=== PATIENT | male | born 1960 | race Caucasian/White ===

== ENCOUNTER 2018-09-16 08:45 | Outpatient (RCR) | payer BC, SELFPAY ==
[2018-09-09 08:48] VITALS: BP 128/97; PULSE 65; RESP 18; TEMP 36.3; BMI 32.5
--- NOTE | 2018-09-09 11:08 | PCM.WC.HP ---
(1) Diabetes type 2, uncontrolled Status: Acute Current Visit: Yes Code(s): E11.65 - Type 2 diabetes mellitus with hyperglycemia (2) Decubitus ulcer of toe, stage 3 Status: Acute Current Visit: Yes Code(s): L89.893 - Pressure ulcer of other site, stage 3 (3) Non-healing ulcer of right foot with fat layer exposed Status: Acute Current Visit: Yes Code(s): L97.512 - Non-pressure chronic ulcer of other part of right foot with fat layer exposed History of Present Illness Date of Service: 09/09/18 Chief Complaint: Follow-up on right great toe ulcer History of Wound: 58-year-old white male developed a callus on his right great toe approximately in May. Patient proceeded to pick off the callus and developed a ulcer that is gotten bigger and bigger. Has been seen by podiatry that wanted to do a skin graft but would make him nonweightbearing. Patient chose to come to wound center for a second opinion. Past Medical History Past Medical History: Diabetic type II. Decubitus ulcer stage III right great toe. Hypertension. CABG Allergies/Adverse Reactions: Allergies Penicillins [PCN] Allergy (Verified 09/09/18 09:15) Rash codeine Adverse Reaction (Verified 09/09/18 09:15) Nausea Home Medications: Ambulatory Orders Medication Instructions Recorded Amiodarone HCl 200 mg PO 09/09/18 Aspirin [Aspir 81] 81 mg PO 09/09/18 Atorvastatin Calcium 40 mg PO 09/09/18 Dulaglutide [Trulicity] 0.75 mg SQ 09/09/18 Gabapentin [Neurontin] 100 mg PO DAILY 09/09/18 Glipizide 5 mg PO BID 09/09/18 Losartan/Hydrochlorothiazide 1 each PO 09/09/18 [Losartan-Hctz 100-12.5 mg Tab] Metoprolol [facility]/Hydrochlorothiaz 1 each PO 09/09/18 [Metoprolol ER-Hctz 100-12.5 mg] Sodium Bicarbonate 1 gm MC 09/09/18 Ticagrelor [Brilinta] 90 mg PO BID 09/09/18 Smoking Status: Never smoker Review of Systems Constitutional: Denies: Chills, Fever Eyes: Denies: Blurred vision, Drainage, Pain HEENT: Denies: Difficulty Hearing, Difficulty Swallowing, Sore Throat, Visual Changes Cardiovascular: Denies: Chest Pain, Palpitations, Syncope Respiratory: Denies: Cough, Shortness of Breath Gastrointestinal: Denies: Abdominal Pain, Nausea, Vomiting Genitourinary: Denies: Dysuria, Frequency Musculoskeletal: Denies: Joint Pain, Muscle pain Skin: Reports: Wounds - Right great toe. Denies: Jaundice, Rash Neurological: Denies: Balance problems, Change in Speech, Difficulty swallowing, Focal weakness Psychiatric: Denies: Anxiety, Depression Endocrine: Denies: Change in Body Habitus Hematologic/ Lymphatic: Denies: Adenopathy - Physical Exam Vital Signs Temp Pulse Resp BP 97.3 F L 65 18 128/97 H 09/09/18 08:48 09/09/18 08:48 09/09/18 08:48 09/09/18 08:48 General: Oriented x3, Cooperative, Well developed HEENT: Atraumatic, PERRLA Oral: Moist Mucosa Neck: Supple, No JVD Lungs: Clear to auscultation, Normal air movement Cardiovascular: Regular rate, Regular Rhythm Abdomen: Bowel Sounds Present, Soft, Non Tender, No Hepato-splenomegaly Extremities: No clubbing, No edema Skin: Ulcer/ Wound - Right great toe decubitus ulcer stage III Wound Measurements and Assessment WC - Nurse 1 - General Ulcer Measurement Start: 09/09/18 08:27 Freq: Status: Active Protocol: Activity Type Activity Date Activity User E-Sign Co-Sign Detail Recorded Client Recorded Date Recorded By Document 09/09/18 08:48 DL [id number] 09/09/18 09:11 DL 09/09/18 08:48 Wound Center Nurse 1 [Ulcer Assessment] #1 R Grt Toe -Current Size (cm) - Length 1.4 -Current Size (cm) - Width 1 -Current Size (cm) - Depth 0.4 -Total Square Cm 1.4 -Photo Taken Yes -Exudate Amt Medium -Exudate Type Serosanguineous -Wound Margin Thickened -Granulation Amt Large (67-100%) -Granulation Quality Red -Necrosis Amt Small (1-33%) -Necrotic Tissue Type Adherent Slough -Structure Exposed N/A -Texture (Bere-wound Skin Appearance) Callus Localized Edema Scarring -Moisture (Bere-wound Skin Appearance Dry/Scaly ) -Color (Bere-wound Skin Appearance) Hemosiderin Staining -Tenderness on Palpation (Bere-wound No Skin Appearance) -Ulcer Cleansing Rinsed/ Irrigated with Saline -Foul Odor after Cleansing No -Anesthetic Used 5% Lidocaine Gel WC - Nurse 2 - General Ulcer CM Notes Start: 09/09/18 08:27 Freq: Status: Active Protocol: Activity Type Activity Date Activity User E-Sign Co-Sign Detail Recorded Client Recorded Date Recorded By Document 09/09/18 09:30 MW [id number] 09/09/18 09:43 MW 09/09/18 09:30 Wound Center Nurse 2 [Procedure/Treatment] -Time 09:31 -Correct Patient Yes -Correct Side, Site, Position Yes -Correct Procedure Yes -Procedure Performed Yes -Type of Procedure Debridement -Clinical Debridement Subcutaneous -Post Debridement Size (cm) - Length 1.7 -Post Debridement Size (cm) - Width 1.0 -Post Debridement Size (cm) - Depth 0.4 -Total Square Cm 1.70 -Wound/Ulcer Outcome Not Healed -Ulcer Cleansing Rinsed/ Irrigated with Saline -Foul Odor after Cleansing No -Bioengineered Tissue No -Bleeding Controlled with Pressure -Other undermining 11- 1, 0.3cm -Offloading No -Treatment Response Procedure Tolerated Well [See Physician Procedure note for Specifics] Pain Scale: 0-10 Numeric [Pain] -Is Patient Pain Free? Yes Musculoskeletal: No Tenderness to Palpation of Joints or Extremities Lymphatic: No Cervical, Supraclavicular, or Inguinal Adenopathy Neurological: Cranial nerves II-XII grossly intact, Neuro grossly intact Psych/Mental Status: Normal Affect, Appropriate Debridement Note Post-Debridement Measurements/Treatment - Nurse 2 - General Ulcer CM Notes Start: 09/09/18 08:27 Freq: Status: Active Protocol: Activity Type Activity Date Activity User E-Sign Co-Sign Detail Recorded Client Recorded Date Recorded By Document 09/09/18 09:30 MW [id number] 09/09/18 09:43 MW 09/09/18 09:30 Wound Center Nurse 2 #1 R Grt Toe -Time 09:31 -Correct Patient Yes -Correct Side, Site, Position Yes -Correct Procedure Yes -Procedure Performed Yes -Type of Procedure Debridement -Clinical Debridement Subcutaneous -Post Debridement Size (cm) - Length 1.7 -Post Debridement Size (cm) - Width 1.0 -Post Debridement Size (cm) - Depth 0.4 -Total Square Cm 1.70 -Wound/Ulcer Outcome Not Healed -Ulcer Cleansing Rinsed/ Irrigated with Saline -Foul Odor after Cleansing No -Bioengineered Tissue No -Bleeding Controlled with Pressure -Other undermining 11- 1, 0.3cm -Offloading No -Treatment Response Procedure Tolerated Well Pain Scale: 0-10 Numeric Is Patient Pain Free? Yes Wound debrided: Great toe Laterality: Right Wound Grade/Stage: Stage 3 Type of Debridement: Excisional debridement Anesthesia Used: 5% Lidocaine Gel Depth: Down to and including healthy tissue, in the subcutaneous layer Percentage of wound debrided: 100 Instrument Used: 5mm curette, #15 blade Tissue Removed: Callus fibrin Amount of bleeding with debridement: Mild Bleeding Controlled with: Compression and gauze Patient tolerated procedure well Assessment/Plan CBC CMP and a hemoglobin A1c CBC CMP hemoglobin A1c and pre-albumin Active Problems Diabetes type 2, uncontrolled (Acute) Decubitus ulcer of toe, stage 3 (Acute) Non-healing 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 Stage III decubitus ulcer right great toe. Nonhealing ulcer greater than 30 days Plan: Wash foot with Dial soap. Apply Promogran to wound base cover with Adaptic gauze and tape. We will apply for epi-fix. Follow-up in 1 week. We will obtain labs
[2018-09-16 08:57] VITALS: BP 119/78; PULSE 64; RESP 16; TEMP 36; BMI 32.5
--- NOTE | 2018-09-16 09:46 | PCM.WC.PN ---
(1) Diabetes type 2, uncontrolled Status: Acute Current Visit: Yes Code(s): E11.65 - Type 2 diabetes mellitus with hyperglycemia (2) Decubitus ulcer of toe, stage 3 Status: Acute Current Visit: Yes Qualifiers: Laterality: right Qualified Code(s): L89.893 - Pressure ulcer of other site, stage 3 Code(s): L89.893 - Pressure ulcer of other site, stage 3 (3) Non-healing ulcer of right foot with fat layer exposed Status: Acute Current Visit: Yes Code(s): L97.512 - Non-pressure chronic ulcer of other part of right foot with fat layer exposed Type of Wound Chief Complaint: Follow-up on right great toe ulcer History of Wound: 58-year-old white male developed a callus on his right great toe approximately in May. Patient proceeded to pick off the callus and developed a ulcer that is gotten bigger and bigger. Has been seen by podiatry that wanted to do a skin graft but would make him nonweightbearing. Patient chose to come to wound center for a second opinion. Progress of Wound: Still pending the skin substitutes. The ulcer is slightly smaller than it was last week. Cultures came back positive for MRSA and strep. She has been started on Zyvox. We will continue to use Promogran until skin substitute can be started. 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 - Physical Exam Vital Signs Temp Pulse Resp BP 96.8 F L 64 16 119/78 09/16/18 08:57 09/16/18 08:57 09/16/18 08:57 09/16/18 08:57 General: Oriented x3, Cooperative, Well developed HEENT: Atraumatic, PERRLA Oral: Moist Mucosa Neck: Supple, No JVD Lungs: Clear to auscultation, Normal air movement Cardiovascular: Regular rate, Regular Rhythm Abdomen: Bowel Sounds Present, Soft, Non Tender, No Hepato-splenomegaly Extremities: No clubbing, No edema, - - Right great toe ulcer Wound Measurements and Assessment WC - Nurse 1 - General Ulcer Measurement Start: 09/09/18 08:27 Freq: Status: Active Protocol: Activity Type Activity Date Activity User E-Sign Co-Sign Detail Recorded Client Recorded Date Recorded By Document 09/16/18 08:57 DV [id number] 09/16/18 09:00 DV 09/16/18 08:57 Wound Center Nurse 1 [Ulcer Assessment] #1 R Grt Toe -Combined with other wound No -Current Size (cm) - Length 1.4 -Current Size (cm) - Width 1.1 -Current Size (cm) - Depth 0.5 -Total Square Cm 1.54 -Photo Taken No -Epithelialization None Present -Tunneling No -Undermining/Tunneling No -Circular Undermining No -Classification - Thickness Full Thickness without Exposed Support Structure -Exudate Amt Medium -Exudate Type Serosanguineous -Wound Margin Distinct, Outline Attached -Granulation Amt None Present (0 %) -Granulation Quality N/A -Slough/Fibrin Yes -Necrosis Amt Small (1-33%) -Necrotic Tissue Type Adherent Slough -Structure Exposed Fat Layer Exposed None/Limited to Skin Breakdown -Texture (Bere-wound Skin Appearance) Assessed Localized Edema Scarring -Moisture (Bere-wound Skin Appearance Assessed ) Weeping -Color (Bere-wound Skin Appearance) No Abnormality Assessed -Temperature (Bere-wound Skin No Abnormality Appearance) (Pt Warm) -Tenderness on Palpation (Bere-wound No Skin Appearance) -Ulcer Cleansing Rinsed/ Irrigated with Saline -Foul Odor after Cleansing No -Anesthetic Used 4% Lidocaine Solution [Edema Assessment] -Lower Limb Edema Present No WC - Nurse 2 - General Ulcer CM Notes Start: 09/09/18 08:27 Freq: Status: Active Protocol: Activity Type Activity Date Activity User E-Sign Co-Sign Detail Recorded Client Recorded Date Recorded By Document 09/16/18 09:33 MW [id number] 09/16/18 09:36 MW 09/16/18 09:33 Wound Center Nurse 2 [Procedure/Treatment] #1 R Grt Toe -Time 09:35 -Correct Patient Yes -Correct Side, Site, Position Yes -Correct Procedure Yes -Procedure Performed Yes -Type of Procedure Debridement -Clinical Debridement Subcutaneous -Post Debridement Size (cm) - Length 1.6 -Post Debridement Size (cm) - Width 1.0 -Post Debridement Size (cm) - Depth 0.4 -Total Square Cm 1.60 -Wound/Ulcer Outcome Not Healed -Ulcer Cleansing Rinsed/ Irrigated with Saline -Foul Odor after Cleansing No -Bioengineered Tissue No -Bleeding Controlled with Pressure -Offloading No -Treatment Response Procedure Tolerated Well [See Physician Procedure note for Specifics] Pain Scale: 0-10 Numeric [Pain] -Is Patient Pain Free? Yes Musculoskeletal: No Tenderness to Palpation of Joints or Extremities Lymphatic: No Cervical, Supraclavicular, or Inguinal Adenopathy Neurological: Cranial nerves II-XII grossly intact, Neuro grossly intact Psych/Mental Status: Normal Affect, Appropriate Debridement Note Post-Debridement Measurements/Treatment WC - Nurse 2 - General Ulcer CM Notes Start: 09/09/18 08:27 Freq: Status: Active Protocol: Activity Type Activity Date Activity User E-Sign Co-Sign Detail Recorded Client Recorded Date Recorded By Document 09/09/18 09:30 MW [id number] 09/09/18 09:43 MW Document 09/16/18 09:33 MW [id number] 09/16/18 09:36 MW 09/09/18 09/16/18 09:30 09:33 Wound Center Nurse 2 #1 R Grt Toe -Time 09:31 09:35 -Correct Patient Yes Yes -Correct Side, Site, Position Yes Yes -Correct Procedure Yes Yes -Procedure Performed Yes Yes -Type of Procedure Debridement Debridement -Clinical Debridement Subcutaneous Subcutaneous -Post Debridement Size (cm) - Length 1.7 1.6 -Post Debridement Size (cm) - Width 1.0 1.0 -Post Debridement Size (cm) - Depth 0.4 0.4 -Total Square Cm 1.70 1.60 -Wound/Ulcer Outcome Not Healed Not Healed -Ulcer Cleansing Rinsed/ Rinsed/ Irrigated with Irrigated with Saline Saline -Foul Odor after Cleansing No No -Bioengineered Tissue No No -Bleeding Controlled with Pressure Pressure -Other undermining 11- 1, 0.3cm -Offloading No No -Treatment Response Procedure Procedure Tolerated Well Tolerated Well Pain Scale: 0-10 Numeric Is Patient Pain Free? Yes Yes Wound debrided: Right great toe Laterality: Right Wound Grade/Stage: Stage III Type of Debridement: Excisional debridement Anesthesia Used: 5% Lidocaine Gel Depth: Down to and including healthy tissue, in the subcutaneous layer, - - With undermining 11-1 Percentage of wound debrided: 100 Instrument Used: 5mm curette Tissue Removed: Fibrin callus Severity: Limited To Skin Breakdown Amount of bleeding with debridement: Moderate Bleeding Controlled with: Compression and gauze Patient tolerated procedure well Assessment/Plan Active Problems Diabetes type 2, uncontrolled (Acute) Decubitus ulcer of toe, stage 3 (Acute) Non-healing 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 Stage III decubitus ulcer right great toe. Nonhealing ulcer greater than 30 days Plan: Wash foot with Dial soap. Apply Promogran to wound base cover with Adaptic gauze and tape. We will apply for epi-fix. Follow-up in 1 week
== END 2018-09-20 23:59 ==
LOC: WC 08:45
PROVIDERS: Family Provider Family Medicine; PCP Family Medicine; Visit Provider Nurse Practitioner
DX: E11.621 Type 2 diabetes mellitus with foot ulcer (principal); L89.893 Pressure ulcer of other site, stage 3; E11.65 Type 2 diabetes mellitus with hyperglycemia; L84 Corns and callosities; Z86.14 Personal history of Methicillin resistant Staphylococcus aureus infection
CPT/HCPCS: 11042; 87070; 87075; 87077; 87186; 87205; 99203; G0463

== ENCOUNTER 2018-10-21 11:00 | Outpatient (RCR) | payer BC, SELFPAY ==
[2018-09-21 01:54] VITALS: BP 119/78; PULSE 64; RESP 16; TEMP 36
[2018-09-23 09:52] VITALS: BP 129/80; PULSE 72; RESP 18; TEMP 36.6; BMI 32.5
--- NOTE | 2018-09-23 11:00 | PN.PCM_ITS ---
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 Patient proceeded to pick off the callus and developed a ulcer that is gotten bigger and bigger. Has been seen by podiatry that wanted to do a skin graft but would make him nonweightbearing. Patient chose to come to wound center for a second opinion. Progress of Wound: Still pending the skin substitutes. The ulcer is slightly smaller than it was last week. Cultures came back positive for MRSA and strep. He is finishing Zyvox. We will continue to use Promogran until skin substitute can be started. 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 Skin buds are noted in the base still has some undermining 12-1 total improvement in the healing. - Physical Exam Vital Signs Temp Pulse Resp BP 97.8 F 72 18 129/80 H 09/23/18 09:52 09/23/18 09:52 09/23/18 09:52 09/23/18 09:52 General: Oriented x3, Cooperative, Well developed HEENT: Atraumatic, PERRLA Oral: Moist Mucosa Neck: Supple, No JVD Lungs: Clear to auscultation, Normal air movement Cardiovascular: Regular rate, Regular Rhythm Abdomen: Bowel Sounds Present, Soft, Non Tender, No Hepato-splenomegaly Extremities: No clubbing, No edema Skin: Ulcer/ Wound - Right great toe Wound Measurements and Assessment WC - Nurse 1 - General Ulcer Measurement Start: 09/23/18 09:51 Freq: Status: Active Protocol: Activity Type Activity Date Activity User E-Sign Co-Sign Detail Recorded Client Recorded Date Recorded By Document 09/23/18 09:52 DL [id number] 09/23/18 09:57 DL 09/23/18 09:52 Wound Center Nurse 1 [Ulcer Assessment] #1 R Grt Toe -Current Size (cm) - Length 1.4 -Current Size (cm) - Width 1 -Current Size (cm) - Depth 0.3 -Total Square Cm 1.4 -Photo Taken No -Undermining/Tunneling Starts (O' 8 clock) -Undermining/Tunneling Ends (O'clock) 1 -Maximum Distance (cm) 0.3 -Exudate Amt Small -Exudate Type Serosanguineous -Wound Margin Thickened -Granulation Amt Medium (34-66%) -Granulation Quality [place] -Necrosis Amt Medium (34-66%) -Necrotic Tissue Type Adherent Slough -Structure Exposed N/A -Texture (Bere-wound Skin Appearance) Callus -Moisture (Bere-wound Skin Appearance Dry/Scaly ) -Color (Bere-wound Skin Appearance) No Abnormality -Temperature (Bere-wound Skin No Abnormality Appearance) (Pt Warm) -Tenderness on Palpation (Bere-wound No Skin Appearance) -Ulcer Cleansing Wound Cleanser -Foul Odor after Cleansing No -Anesthetic Used 4% Lidocaine Solution [Edema Assessment] -Right Calf (cm) 39 -Right Ankle (cm) 23 WC - Nurse 2 - General Ulcer CM Notes Start: 09/23/18 09:51 Freq: Status: Active Protocol: Activity Type Activity Date Activity User E-Sign Co-Sign Detail Recorded Client Recorded Date Recorded By Document 09/23/18 10:05 MW [id number] 09/23/18 10:09 MW 09/23/18 10:05 Wound Center Nurse 2 [Procedure/Treatment] #1 R Grt Toe -Time 10:06 -Correct Patient Yes -Correct Side, Site, Position Yes -Correct Procedure Yes -Procedure Performed Yes -Type of Procedure Debridement -Clinical Debridement Subcutaneous -Post Debridement Size (cm) - Length 1.4 -Post Debridement Size (cm) - Width 1.2 -Post Debridement Size (cm) - Depth 0.3 -Total Square Cm 1.68 -Wound/Ulcer Outcome Not Healed -Ulcer Cleansing Rinsed/ Irrigated with Saline -Foul Odor after Cleansing No -Bioengineered Tissue No -Bleeding Controlled with Pressure -Other undermining 12- 1 , 0.3cm -Offloading No -Treatment Response Procedure Tolerated Well [See Physician Procedure note for Specifics] Pain Scale: 0-10 Numeric [Pain] -Is Patient Pain Free? Yes Musculoskeletal: No Tenderness to Palpation of Joints or Extremities Lymphatic: No Cervical, Supraclavicular, or Inguinal Adenopathy Neurological: Cranial nerves II-XII grossly intact, Neuro grossly intact Psych/Mental Status: Normal Affect, Appropriate Debridement Note Post-Debridement Measurements/Treatment WC - Nurse 2 - General Ulcer CM Notes Start: 09/23/18 09:51 Freq: Status: Active Protocol: Activity Type Activity Date Activity User E-Sign Co-Sign Detail Recorded Client Recorded Date Recorded By Document 09/23/18 10:05 MW [id number] 09/23/18 10:09 MW 09/23/18 10:05 Wound Center Nurse 2 #1 R Grt Toe -Time 10:06 -Correct Patient Yes -Correct Side, Site, Position Yes -Correct Procedure Yes -Procedure Performed Yes -Type of Procedure Debridement -Clinical Debridement Subcutaneous -Post Debridement Size (cm) - Length 1.4 -Post Debridement Size (cm) - Width 1.2 -Post Debridement Size (cm) - Depth 0.3 -Total Square Cm 1.68 -Wound/Ulcer Outcome Not Healed -Ulcer Cleansing Rinsed/ Irrigated with Saline -Foul Odor after Cleansing No -Bioengineered Tissue No -Bleeding Controlled with Pressure -Other undermining 12- 1 , 0.3cm -Offloading No -Treatment Response Procedure Tolerated Well Pain Scale: 0-10 Numeric Is Patient Pain Free? Yes Wound debrided: Right great toe Wound Grade/Stage: Stage III Type of Debridement: Excisional debridement Anesthesia Used: 5% Lidocaine Gel Depth: Down to and including healthy tissue, in the subcutaneous layer Percentage of wound debrided: 100 Instrument Used: 7mm curette Tissue Removed: Devitalized tissue and fibrin Amount of bleeding with debridement: Mild Bleeding Controlled with: Compression and gauze Patient tolerated procedure well Assessment/Plan Active Problems Diabetes type 2, uncontrolled (Acute) Decubitus ulcer of toe, stage 3 (Acute) Non-healing 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 Stage III decubitus ulcer right great toe. Nonhealing ulcer greater than 30 days Plan: Wash foot with Dial soap. Apply Promogran to wound base cover with Adaptic gauze and tape. We will apply for epi-fix. Follow-up in 1 week
[2018-10-07 11:37] VITALS: BP 157/90; PULSE 62; RESP 18; TEMP 36.1; BMI 32.5
--- NOTE | 2018-10-07 11:56 | PCM.WC.PN ---
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 Patient proceeded to pick off the callus and developed a ulcer that is gotten bigger and bigger. Has been seen by podiatry that wanted to do a skin graft but would make him nonweightbearing. Patient chose to come to wound center for a second opinion. Progress of Wound: Patient has not been here for 2 weeks skin substitute has been approved. The ulcer is slightly there are than it was 2 weeks ago. Cultures came back positive for MRSA and strep. He is finished Zyvox. The wound appears clean and still has undermining from 6-12. He started his new job that he is now walking on his foot to a more sedentary job at his desk. - Physical Exam Vital Signs Temp Pulse Resp BP 96.9 F L 62 18 157/90 H 10/07/18 11:37 10/07/18 11:37 10/07/18 11:37 10/07/18 11:37 General: Oriented x3, Cooperative, Well developed HEENT: Atraumatic, PERRLA Oral: Moist Mucosa Neck: Supple, No JVD Lungs: Clear to auscultation, Normal air movement Cardiovascular: Regular rate, Regular Rhythm Abdomen: Bowel Sounds Present, Soft, Non Tender, No Hepato-splenomegaly Extremities: No clubbing, No edema, - - Right great toe ulcer stage III Wound Measurements and Assessment WC - Nurse 1 - General Ulcer Measurement Start: 09/23/18 09:51 Freq: Status: Active Protocol: Activity Type Activity Date Activity User E-Sign Co-Sign Detail Recorded Client Recorded Date Recorded By Document 10/07/18 11:37 [id number] 10/07/18 11:39 10/07/18 11:37 Wound Center Nurse 1 [Ulcer Assessment] #1 R Grt Toe -Combined with other wound No -Current Size (cm) - Length 1.5 -Current Size (cm) - Width 1.2 -Current Size (cm) - Depth 0.6 -Total Square Cm 1.80 -Photo Taken No -Epithelialization None Present -Tunneling No -Undermining/Tunneling Yes -Undermining/Tunneling Starts (O' 6 clock) -Undermining/Tunneling Ends (O'clock) 2 -Maximum Distance (cm) 0.5 -Circular Undermining No -Exudate Amt Medium -Exudate Type Serosanguineous -Wound Margin Distinct, Outline Attached -Granulation Amt Large (67-100%) -Granulation Quality Red -Slough/Fibrin Yes -Necrosis Amt Small (1-33%) -Necrotic Tissue Type Adherent Slough -Structure Exposed None/Limited to Skin Breakdown -Texture (Bere-wound Skin Appearance) Assessed Callus -Moisture (Bere-wound Skin Appearance No Abnormality ) Assessed -Color (Bere-wound Skin Appearance) No Abnormality Assessed -Temperature (Bere-wound Skin No Abnormality Appearance) (Pt Warm) -Tenderness on Palpation (Bere-wound No Skin Appearance) -Ulcer Cleansing Rinsed/ Irrigated with Saline -Foul Odor after Cleansing No -Anesthetic Used 5% Lidocaine Gel [Edema Assessment] -Lower Limb Edema Present No -Left Calf (cm) 42 -Left Ankle (cm) 24.4 Musculoskeletal: No Tenderness to Palpation of Joints or Extremities Lymphatic: No Cervical, Supraclavicular, or Inguinal Adenopathy Neurological: Cranial nerves II-XII grossly intact, Neuro grossly intact Psych/Mental Status: Normal Affect, Appropriate Debridement Note Post-Debridement Measurements/Treatment WC - Nurse 2 - General Ulcer CM Notes Start: 09/23/18 09:51 Freq: Status: Active Protocol: Activity Type Activity Date Activity User E-Sign Co-Sign Detail Recorded Client Recorded Date Recorded By Document 09/23/18 10:05 MW [id number] 09/23/18 10:09 MW 09/23/18 10:05 Wound Center Nurse 2 #1 R Grt Toe -Time 10:06 -Correct Patient Yes -Correct Side, Site, Position Yes -Correct Procedure Yes -Procedure Performed Yes -Type of Procedure Debridement -Clinical Debridement Subcutaneous -Post Debridement Size (cm) - Length 1.4 -Post Debridement Size (cm) - Width 1.2 -Post Debridement Size (cm) - Depth 0.3 -Total Square Cm 1.68 -Wound/Ulcer Outcome Not Healed -Ulcer Cleansing Rinsed/ Irrigated with Saline -Foul Odor after Cleansing No -Bioengineered Tissue No -Bleeding Controlled with Pressure -Other undermining 12- 1 , 0.3cm -Offloading No -Treatment Response Procedure Tolerated Well Pain Scale: 0-10 Numeric Is Patient Pain Free? Yes Wound Grade/Stage: Right great toe ulcer Type of Debridement: Excisional debridement Anesthesia Used: 5% Lidocaine Gel Percentage of wound debrided: 100 Instrument Used: 5mm curette, - Tissue Removed: Fibrin Callus Severity: Limited To Skin Breakdown Amount of bleeding with debridement: Mild Bleeding Controlled with: Compression and gauze Patient tolerated procedure well Assessment/Plan Active Problems Diabetes type 2, uncontrolled (Acute) Decubitus ulcer of toe, stage 3 (Acute) Non-healing 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 Stage III decubitus ulcer right great toe. Nonhealing ulcer greater than 30 days Plan: Epi fix #1 applied Steri-Strips dressing applied. Leave dressing alone and keep dry. Follow-up in 1 week
[2018-10-14 11:21] VITALS: BP 141/56; PULSE 66; RESP 16; TEMP 36.3; BMI 32.5
--- NOTE | 2018-10-14 12:51 | PCM.WC.PN ---
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 Patient proceeded to pick off the callus and developed a ulcer that is gotten bigger and bigger. Has been seen by podiatry that wanted to do a skin graft but would make him nonweightbearing. Patient chose to come to wound center for a second opinion. Progress of Wound: Patient has not been here for 2 weeks skin substitute has been approved. The ulcer is slightly there are than it was 2 weeks ago. Cultures came back positive for MRSA and strep. He is finished Zyvox. The wound appears clean and still has undermining from 6-12. He started his new job that he is now walking on his foot to a more sedentary job at his desk. Patient states that after the second day the wound became saturated and came off. Wound is slightly better in depth but about the same size still has undermining 6-12. Epi-fix #2 was applied today - Physical Exam Vital Signs Temp Pulse Resp BP 97.3 F L 66 16 141/56 H 10/14/18 11:21 10/14/18 11:21 10/14/18 11:21 10/14/18 11:21 General: Oriented x3, Cooperative, Well developed HEENT: Atraumatic, PERRLA Oral: Moist Mucosa Neck: Supple, No JVD Lungs: Clear to auscultation, Normal air movement Cardiovascular: Regular rate, Regular Rhythm Abdomen: Bowel Sounds Present, Soft, Non Tender, No Hepato-splenomegaly Extremities: No clubbing, No edema, - - Right great toe ulcer Wound Measurements and Assessment WC - Nurse 1 - General Ulcer Measurement Start: 09/23/18 09:51 Freq: Status: Active Protocol: Activity Type Activity Date Activity User E-Sign Co-Sign Detail Recorded Client Recorded Date Recorded By Document 10/14/18 11:21 [facility] [id number] 10/14/18 11:24 [facility] 10/14/18 11:21 Wound Center Nurse 1 [Ulcer Assessment] #1 R Grt Toe -Combined with other wound No -Current Size (cm) - Length 0.9 -Current Size (cm) - Width 1.0 -Current Size (cm) - Depth 0.3 -Total Square Cm 0.90 -Photo Taken No -Epithelialization None Present -Tunneling No -Undermining/Tunneling Yes -Undermining/Tunneling Starts (O' 6 clock) -Undermining/Tunneling Ends (O'clock) 1 -Maximum Distance (cm) 0.2 -Circular Undermining No -Exudate Amt Medium -Exudate Type Serosanguineous -Wound Margin Distinct, Outline Attached -Granulation Amt Large (67-100%) -Granulation Quality Red -Slough/Fibrin Yes -Necrosis Amt None Present (0 %) -Necrotic Tissue Type Adherent Slough -Structure Exposed None/Limited to Skin Breakdown -Texture (Bere-wound Skin Appearance) Callus -Moisture (Bere-wound Skin Appearance No Abnormality ) Assessed -Color (Bere-wound Skin Appearance) No Abnormality Assessed -Temperature (Bere-wound Skin No Abnormality Appearance) (Pt Warm) -Tenderness on Palpation (Bere-wound No Skin Appearance) -Ulcer Cleansing Rinsed/ Irrigated with Saline -Foul Odor after Cleansing No -Anesthetic Used 5% Lidocaine Gel [Edema Assessment] -Lower Limb Edema Present No -Right Calf (cm) 42.1 -Right Ankle (cm) 24.5 WC - Nurse 2 - General Ulcer CM Notes Start: 09/23/18 09:51 Freq: Status: Active Protocol: Activity Type Activity Date Activity User E-Sign Co-Sign Detail Recorded Client Recorded Date Recorded By Document 10/14/18 11:36 MW [id number] 10/14/18 11:46 MW 10/14/18 11:36 Wound Center Nurse 2 [Procedure/Treatment] #1 R Grt Toe -Time 11:38 -Correct Patient Yes -Correct Side, Site, Position Yes -Correct Procedure Yes -Procedure Performed Yes -Type of Procedure Debridement -Clinical Debridement Subcutaneous -Post Debridement Size (cm) - Length 1.8 -Post Debridement Size (cm) - Width 1.0 -Post Debridement Size (cm) - Depth 0.3 -Total Square Cm 1.80 -Wound/Ulcer Outcome Not Healed -Ulcer Cleansing Rinsed/ Irrigated with Saline -Foul Odor after Cleansing No -Bioengineered Tissue Yes -Type of bioengineered Tissue EPIFIX -Expiration Date 02/21/23 -Product Lot Number [id number] -Percent Used 100 -Saline Lot Number [id number] -Bleeding Controlled with Pressure -Other undermining 6- 12, 0.3 -Offloading No -Treatment Response Procedure Tolerated Well [See Physician Procedure note for Specifics] Pain Scale: 0-10 Numeric [Pain] -Is Patient Pain Free? Yes Musculoskeletal: No Tenderness to Palpation of Joints or Extremities Lymphatic: No Cervical, Supraclavicular, or Inguinal Adenopathy Neurological: Cranial nerves II-XII grossly intact, Neuro grossly intact Psych/Mental Status: Normal Affect, Appropriate Debridement Note Post-Debridement Measurements/Treatment WC - Nurse 2 - General Ulcer CM Notes Start: 09/23/18 09:51 Freq: Status: Active Protocol: Activity Type Activity Date Activity User E-Sign Co-Sign Detail Recorded Client Recorded Date Recorded By Document 09/23/18 10:05 MW [id number] 09/23/18 10:09 MW Document 10/07/18 12:03 MW [id number] 10/07/18 12:05 MW Document 10/14/18 11:36 MW [id number] 10/14/18 11:46 MW 09/23/18 10/07/18 10/14/18 10:05 12:03 11:36 Wound Center Nurse 2 #1 R Grt Toe -Time 10:06 12:03 11:38 -Correct Patient Yes Yes Yes -Correct Side, Site, Position Yes Yes Yes -Correct Procedure Yes Yes Yes -Procedure Performed Yes Yes Yes -Type of Procedure Debridement Debridement Debridement -Clinical Debridement Subcutaneous Subcutaneous Subcutaneous -Post Debridement Size (cm) - Length 1.4 1.5 1.8 -Post Debridement Size (cm) - Width 1.2 1.0 1.0 -Post Debridement Size (cm) - Depth 0.3 0.5 0.3 -Total Square Cm 1.68 1.50 1.80 -Wound/Ulcer Outcome Not Healed Not Healed Not Healed -Ulcer Cleansing Rinsed/ Rinsed/ Rinsed/ Irrigated with Irrigated with Irrigated with Saline Saline Saline -Foul Odor after Cleansing No No No -Bioengineered Tissue No Yes Yes -Type of bioengineered Tissue EPIFIX EPIFIX -Expiration Date 02/21/23 02/21/23 -Product Lot Number [id number] -Percent Used 100 100 -Saline Lot Number [id number] -Bleeding Controlled with Pressure Pressure Pressure -Other undermining 12- undermining 6- 1 , 0.3cm 12, 0.3 -Offloading No No No -Treatment Response Procedure Procedure Procedure Tolerated Well Tolerated Well Tolerated Well Pain Scale: 0-10 Numeric Is Patient Pain Free? Yes Yes Yes Wound debrided: Great toe DFU Laterality: Right Type of Debridement: Excisional debridement Anesthesia Used: 5% Lidocaine Gel Depth: Down to and including healthy tissue, in the subcutaneous layer Percentage of wound debrided: 100 Instrument Used: 5mm curette, - - Nippers Tissue Removed: Fibrin and callus Severity: Limited To Skin Breakdown Amount of bleeding with debridement: Mild Bleeding Controlled with: Compression and gauze Patient tolerated procedure well Assessment/Plan Active Problems Diabetes type 2, uncontrolled (Acute) Decubitus ulcer of toe, stage 3 (Acute) Non-healing 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 Stage III decubitus ulcer right great toe. Nonhealing ulcer greater than 30 days Plan: Epi fix #2 applied Steri-Strips Aquacel dressing applied. Leave dressing alone and keep dry. Follow-up in 1 week
--- NOTE | 2018-10-14 12:54 | PN.PCM_ITS ---
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 Patient proceeded to pick off the callus and developed a ulcer that is gotten bigger and bigger. Has been seen by podiatry that wanted to do a skin graft but would make him nonweightbearing. Patient chose to come to wound center for a second opinion. Progress of Wound: Patient has not been here for 2 weeks skin substitute has been approved. The ulcer is slightly there are than it was 2 weeks ago. Cultures came back positive for MRSA and strep. He is finished Zyvox. The wound appears clean and still has undermining from 6-12. He started his new job that he is now walking on his foot to a more sedentary job at his desk. Patient states that after the second day the wound became saturated and came off. Wound is slightly better in depth but about the same size still has undermining 6-12. Epi-fix #2 was applied today - Physical Exam Vital Signs Temp Pulse Resp BP 97.3 F L 66 16 141/56 H 10/14/18 11:21 10/14/18 11:21 10/14/18 11:21 10/14/18 11:21 General: Oriented x3, Cooperative, Well developed HEENT: Atraumatic, PERRLA Oral: Moist Mucosa Neck: Supple, No JVD Lungs: Clear to auscultation, Normal air movement Cardiovascular: Regular rate, Regular Rhythm Abdomen: Bowel Sounds Present, Soft, Non Tender, No Hepato-splenomegaly Extremities: No clubbing, No edema, - - Right great toe ulcer Wound Measurements and Assessment WC - Nurse 1 - General Ulcer Measurement Start: 09/23/18 09:51 Freq: Status: Active Protocol: Activity Type Activity Date Activity User E-Sign Co-Sign Detail Recorded Client Recorded Date Recorded By Document 10/14/18 11:21 [facility] [id number] 10/14/18 11:24 [facility] 10/14/18 11:21 Wound Center Nurse 1 [Ulcer Assessment] #1 R Grt Toe -Combined with other wound No -Current Size (cm) - Length 0.9 -Current Size (cm) - Width 1.0 -Current Size (cm) - Depth 0.3 -Total Square Cm 0.90 -Photo Taken No -Epithelialization None Present -Tunneling No -Undermining/Tunneling Yes -Undermining/Tunneling Starts (O' 6 clock) -Undermining/Tunneling Ends (O'clock) 1 -Maximum Distance (cm) 0.2 -Circular Undermining No -Exudate Amt Medium -Exudate Type Serosanguineous -Wound Margin Distinct, Outline Attached -Granulation Amt Large (67-100%) -Granulation Quality Red -Slough/Fibrin Yes -Necrosis Amt None Present (0 %) -Necrotic Tissue Type Adherent Slough -Structure Exposed None/Limited to Skin Breakdown -Texture (Bere-wound Skin Appearance) Callus -Moisture (Bere-wound Skin Appearance No Abnormality ) Assessed -Color (Bere-wound Skin Appearance) No Abnormality Assessed -Temperature (Bere-wound Skin No Abnormality Appearance) (Pt Warm) -Tenderness on Palpation (Bere-wound No Skin Appearance) -Ulcer Cleansing Rinsed/ Irrigated with Saline -Foul Odor after Cleansing No -Anesthetic Used 5% Lidocaine Gel [Edema Assessment] -Lower Limb Edema Present No -Right Calf (cm) 42.1 -Right Ankle (cm) 24.5 WC - Nurse 2 - General Ulcer CM Notes Start: 09/23/18 09:51 Freq: Status: Active Protocol: Activity Type Activity Date Activity User E-Sign Co-Sign Detail Recorded Client Recorded Date Recorded By Document 10/14/18 11:36 MW [id number] 10/14/18 11:46 MW 10/14/18 11:36 Wound Center Nurse 2 [Procedure/Treatment] #1 R Grt Toe -Time 11:38 -Correct Patient Yes -Correct Side, Site, Position Yes -Correct Procedure Yes -Procedure Performed Yes -Type of Procedure Debridement -Clinical Debridement Subcutaneous -Post Debridement Size (cm) - Length 1.8 -Post Debridement Size (cm) - Width 1.0 -Post Debridement Size (cm) - Depth 0.3 -Total Square Cm 1.80 -Wound/Ulcer Outcome Not Healed -Ulcer Cleansing Rinsed/ Irrigated with Saline -Foul Odor after Cleansing No -Bioengineered Tissue Yes -Type of bioengineered Tissue EPIFIX -Expiration Date 02/21/23 -Product Lot Number [id number] -Percent Used 100 -Saline Lot Number [id number] -Bleeding Controlled with Pressure -Other undermining 6- 12, 0.3 -Offloading No -Treatment Response Procedure Tolerated Well [See Physician Procedure note for Specifics] Pain Scale: 0-10 Numeric [Pain] -Is Patient Pain Free? Yes Musculoskeletal: No Tenderness to Palpation of Joints or Extremities Lymphatic: No Cervical, Supraclavicular, or Inguinal Adenopathy Neurological: Cranial nerves II-XII grossly intact, Neuro grossly intact Psych/Mental Status: Normal Affect, Appropriate Debridement Note Post-Debridement Measurements/Treatment WC - Nurse 2 - General Ulcer CM Notes Start: 09/23/18 09:51 Freq: Status: Active Protocol: Activity Type Activity Date Activity User E-Sign Co-Sign Detail Recorded Client Recorded Date Recorded By Document 09/23/18 10:05 MW [id number] 09/23/18 10:09 MW Document 10/07/18 12:03 MW [id number] 10/07/18 12:05 MW Document 10/14/18 11:36 MW [id number] 10/14/18 11:46 MW 09/23/18 10/07/18 10/14/18 10:05 12:03 11:36 Wound Center Nurse 2 #1 R Grt Toe -Time 10:06 12:03 11:38 -Correct Patient Yes Yes Yes -Correct Side, Site, Position Yes Yes Yes -Correct Procedure Yes Yes Yes -Procedure Performed Yes Yes Yes -Type of Procedure Debridement Debridement Debridement -Clinical Debridement Subcutaneous Subcutaneous Subcutaneous -Post Debridement Size (cm) - Length 1.4 1.5 1.8 -Post Debridement Size (cm) - Width 1.2 1.0 1.0 -Post Debridement Size (cm) - Depth 0.3 0.5 0.3 -Total Square Cm 1.68 1.50 1.80 -Wound/Ulcer Outcome Not Healed Not Healed Not Healed -Ulcer Cleansing Rinsed/ Rinsed/ Rinsed/ Irrigated with Irrigated with Irrigated with Saline Saline Saline -Foul Odor after Cleansing No No No -Bioengineered Tissue No Yes Yes -Type of bioengineered Tissue EPIFIX EPIFIX -Expiration Date 02/21/23 02/21/23 -Product Lot Number [id number] -Percent Used 100 100 -Saline Lot Number [id number] -Bleeding Controlled with Pressure Pressure Pressure -Other undermining 12- undermining 6- 1 , 0.3cm 12, 0.3 -Offloading No No No -Treatment Response Procedure Procedure Procedure Tolerated Well Tolerated Well Tolerated Well Pain Scale: 0-10 Numeric Is Patient Pain Free? Yes Yes Yes Wound debrided: Great toe DFU Laterality: Right Type of Debridement: Excisional debridement Anesthesia Used: 5% Lidocaine Gel Depth: Down to and including healthy tissue, in the subcutaneous layer Percentage of wound debrided: 100 Instrument Used: 5mm curette, - - Nippers Tissue Removed: Fibrin and callus Severity: Limited To Skin Breakdown Amount of bleeding with debridement: Mild Bleeding Controlled with: Compression and gauze Patient tolerated procedure well Assessment/Plan Active Problems Diabetes type 2, uncontrolled (Acute) Decubitus ulcer of toe, stage 3 (Acute) Non-healing 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 Stage III decubitus ulcer right great toe. Nonhealing ulcer greater than 30 days Plan: Epi fix #2 applied Steri-Strips Aquacel dressing applied. Leave dressing alone and keep dry. Follow-up in 1 week
[2018-10-21 11:00] VITALS: BP 134/86; PULSE 68; RESP 18; TEMP 36.6; BMI 32.5
--- NOTE | 2018-10-21 11:34 | PCM.WC.PN ---
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 Patient proceeded to pick off the callus and developed a ulcer that is gotten bigger and bigger. Has been seen by podiatry that wanted to do a skin graft but would make him nonweightbearing. Patient chose to come to wound center for a second opinion. Progress of Wound: Patient has not been here for 2 weeks skin substitute has been approved. The ulcer is slightly there are than it was 2 weeks ago. Cultures came back positive for MRSA and strep. He is finished Zyvox. The wound appears clean and debrided most of the callus way to get rid of the undermining from -. He started his new job that he is now walking on his foot to a more sedentary job at his desk. Patient will be out for the next 2 weeks due to his job has him traveling out of state. We are trying to reinforce the dressing and putting Aquacel on top of the veil for reinforcement for drainage epi-fix #3 was applied today, patient will remove dressing on November 04 and start using Promogran daily to wound site. Patient will try to be seen here at the clinic the week of November 06Wednesday or Wednesday. And I will follow-up in the next 2 weeks. - Physical Exam Vital Signs Temp Pulse Resp BP 98 F 68 18 134/86 H 10/21/18 11:00 10/21/18 11:00 10/21/18 11:10/21/18 11:00 General: Oriented x3, Cooperative, Well developed HEENT: Atraumatic, PERRLA Oral: Moist Mucosa Neck: Supple, No JVD Lungs: Clear to auscultation, Normal air movement Cardiovascular: Regular rate, Regular Rhythm Abdomen: Bowel Sounds Present, Soft, Non Tender, No Hepato-splenomegaly Extremities: No clubbing, No edema, - - Right great toe DFU stage III Skin: Ulcer/ Wound Wound Measurements and Assessment WC - Nurse 1 - General Ulcer Measurement Start: 09/23/18 09:51 Freq: Status: Active Protocol: Activity Type Activity Date Activity User E-Sign Co-Sign Detail Recorded Client Recorded Date Recorded By Document 10/21/18 11:00 RB [id number] 10/21/18 11:03 RB 10/21/18 11:00 Wound Center Nurse 1 [Ulcer Assessment] #1 R Grt Toe -Combined with other wound No -Current Size (cm) - Length 1.5 -Current Size (cm) - Width 0.7 -Current Size (cm) - Depth 0.3 -Total Square Cm 1.05 -Tunneling No -Undermining/Tunneling Yes -Undermining/Tunneling Starts (O' 6 clock) -Undermining/Tunneling Ends (O'clock) 1 -Maximum Distance (cm) 0.3 -Circular Undermining No -Exudate Amt Medium -Exudate Type Serosanguineous -Wound Margin Thickened -Granulation Amt Medium (34-66%) -Granulation Quality Red -Slough/Fibrin Yes -Necrosis Amt Medium (34-66%) -Necrotic Tissue Type Adherent Slough -Structure Exposed N/A -Texture (Bere-wound Skin Appearance) Callus -Moisture (Bere-wound Skin Appearance Assessed ) -Color (Bere-wound Skin Appearance) Assessed -Temperature (Bere-wound Skin No Abnormality Appearance) (Pt Warm) -Tenderness on Palpation (Bere-wound No Skin Appearance) -Ulcer Cleansing Wound Cleanser -Foul Odor after Cleansing No -Anesthetic Used 5% Lidocaine Gel [Edema Assessment] -Lower Limb Edema Present Yes -Right Calf (cm) 42 -Right Ankle (cm) 25.5 WC - Nurse 2 - General Ulcer CM Notes Start: 09/23/18 09:51 Freq: Status: Active Protocol: Activity Type Activity Date Activity User E-Sign Co-Sign Detail Recorded Client Recorded Date Recorded By Document 10/21/18 11:14 MW [id number] 10/21/18 11:28 MW 10/21/18 11:14 Wound Center Nurse 2 [Procedure/Treatment] #1 R Grt Toe -Time 11:15 -Correct Patient Yes -Correct Side, Site, Position Yes -Correct Procedure Yes -Procedure Performed Yes -Type of Procedure Debridement -Clinical Debridement Subcutaneous -Post Debridement Size (cm) - Length 1.8 -Post Debridement Size (cm) - Width 1.4 -Post Debridement Size (cm) - Depth 0.3 -Total Square Cm 2.52 -Wound/Ulcer Outcome Not Healed -Ulcer Cleansing Rinsed/ Irrigated with Saline -Foul Odor after Cleansing No -Bioengineered Tissue Yes -Type of bioengineered Tissue EPIFIX -Expiration Date 02/21/23 -Product Lot Number [id number] -Percent Used 100 -Saline Lot Number [id number] -Bleeding Controlled with Pressure -Offloading No -Treatment Response Procedure Tolerated Well [See Physician Procedure note for Specifics] Pain Scale: 0-10 Numeric [Pain] -Is Patient Pain Free? Yes Musculoskeletal: No Tenderness to Palpation of Joints or Extremities Lymphatic: No Cervical, Supraclavicular, or Inguinal Adenopathy Neurological: Cranial nerves II-XII grossly intact, Neuro grossly intact Psych/Mental Status: Normal Affect, Appropriate, Alert and oriented to time, place, person, mood and affect Debridement Note Post-Debridement Measurements/Treatment WC - Nurse 2 - General Ulcer CM Notes Start: 09/23/18 09:51 Freq: Status: Active Protocol: Activity Type Activity Date Activity User E-Sign Co-Sign Detail Recorded Client Recorded Date Recorded By Document 09/23/18 10:05 MW [id number] 09/23/18 10:09 MW Document 10/07/18 12:03 MW [id number] 10/07/18 12:05 MW Document 10/14/18 11:36 MW [id number] 10/14/18 11:46 MW Document 10/21/18 11:14 MW [id number] 10/21/18 11:28 MW 09/23/18 10/07/18 10/14/18 10:05 12:03 11:36 Wound Center Nurse 2 #1 R Grt Toe -Time 10:06 12:03 11:38 -Correct Patient Yes Yes Yes -Correct Side, Site, Position Yes Yes Yes -Correct Procedure Yes Yes Yes -Procedure Performed Yes Yes Yes -Type of Procedure Debridement Debridement Debridement -Clinical Debridement Subcutaneous Subcutaneous Subcutaneous -Post Debridement Size (cm) - Length 1.4 1.5 1.8 -Post Debridement Size (cm) - Width 1.2 1.0 1.0 -Post Debridement Size (cm) - Depth 0.3 0.5 0.3 -Total Square Cm 1.68 1.50 1.80 -Wound/Ulcer Outcome Not Healed Not Healed Not Healed -Ulcer Cleansing Rinsed/ Rinsed/ Rinsed/ Irrigated with Irrigated with Irrigated with Saline Saline Saline -Foul Odor after Cleansing No No No -Bioengineered Tissue No Yes Yes -Type of bioengineered Tissue EPIFIX EPIFIX -Expiration Date 02/21/23 02/21/23 -Product Lot Number [id number] -Percent Used 100 100 -Saline Lot Number [id number] -Bleeding Controlled with Pressure Pressure Pressure -Other undermining 12- undermining 6- 1 , 0.3cm 12, 0.3 -Offloading No No No -Treatment Response Procedure Procedure Procedure Tolerated Well Tolerated Well Tolerated Well Pain Scale: 0-10 Numeric Is Patient Pain Free? Yes Yes Yes 10/21/18 11:14 Wound Center Nurse 2 #1 R Grt Toe -Time 11:15 -Correct Patient Yes -Correct Side, Site, Position Yes -Correct Procedure Yes -Procedure Performed Yes -Type of Procedure Debridement -Clinical Debridement Subcutaneous -Post Debridement Size (cm) - Length 1.8 -Post Debridement Size (cm) - Width 1.4 -Post Debridement Size (cm) - Depth 0.3 -Total Square Cm 2.52 -Wound/Ulcer Outcome Not Healed -Ulcer Cleansing Rinsed/ Irrigated with Saline -Foul Odor after Cleansing No -Bioengineered Tissue Yes -Type of bioengineered Tissue EPIFIX -Expiration Date 02/21/23 -Product Lot Number [id number] -Percent Used 100 -Saline Lot Number [id number] -Bleeding Controlled with Pressure -Other -Offloading No -Treatment Response Procedure Tolerated Well Pain Scale: 0-10 Numeric Is Patient Pain Free? Yes Wound debrided: Great toe DFU Laterality: Right Wound Grade/Stage: Stage III Type of Debridement: Excisional debridement Anesthesia Used: 5% Lidocaine Gel Depth: Down to and including healthy tissue, in the subcutaneous layer Percentage of wound debrided: 100 Instrument Used: 7mm curette, - - Nippers Tissue Removed: Callus and fibrin Severity: Limited To Skin Breakdown Amount of bleeding with debridement: Mild Bleeding Controlled with: Compression and gauze Patient tolerated procedure well Assessment/Plan Active Problems Diabetes type 2, uncontrolled (Acute) Decubitus ulcer of toe, stage 3 (Acute) Non-healing 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 Stage III decubitus ulcer right great toe. Nonhealing ulcer greater than 30 days Plan: Epi fix #3 applied Steri-Strips Aquacel dressing applied. Leave dressing alone and keep dry until November 04. Then start Promogran to wound base cover with gauze and tape. Follow-up in 2 week
--- NOTE | 2018-10-21 11:38 | PN.PCM_ITS ---
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 Patient proceeded to pick off the callus and developed a ulcer that is gotten bigger and bigger. Has been seen by podiatry that wanted to do a skin graft but would make him nonweightbearing. Patient chose to come to wound center for a second opinion. Progress of Wound: Patient has not been here for 2 weeks skin substitute has been approved. The ulcer is slightly there are than it was 2 weeks ago. Cultures came back positive for MRSA and strep. He is finished Zyvox. The wound appears clean and debrided most of the callus way to get rid of the undermining from -. He started his new job that he is now walking on his foot to a more sedentary job at his desk. Patient will be out for the next 2 weeks due to his job has him traveling out of state. We are trying to reinforce the dressing and putting Aquacel on top of the veil for reinforcement for drainage epi-fix #3 was applied today, patient will remove dressing on November 04 and start using Promogran daily to wound site. Patient will try to be seen here at the clinic the week of November 06Wednesday or Wednesday. And I will follow-up in the next 2 weeks. - Physical Exam Vital Signs Temp Pulse Resp BP 98 F 68 18 134/86 H 10/21/18 11:00 10/21/18 11:00 10/21/18 11:10/21/18 11:00 General: Oriented x3, Cooperative, Well developed HEENT: Atraumatic, PERRLA Oral: Moist Mucosa Neck: Supple, No JVD Lungs: Clear to auscultation, Normal air movement Cardiovascular: Regular rate, Regular Rhythm Abdomen: Bowel Sounds Present, Soft, Non Tender, No Hepato-splenomegaly Extremities: No clubbing, No edema, - - Right great toe DFU stage III Skin: Ulcer/ Wound Wound Measurements and Assessment WC - Nurse 1 - General Ulcer Measurement Start: 09/23/18 09:51 Freq: Status: Active Protocol: Activity Type Activity Date Activity User E-Sign Co-Sign Detail Recorded Client Recorded Date Recorded By Document 10/21/18 11:00 RB [id number] 10/21/18 11:03 RB 10/21/18 11:00 Wound Center Nurse 1 [Ulcer Assessment] #1 R Grt Toe -Combined with other wound No -Current Size (cm) - Length 1.5 -Current Size (cm) - Width 0.7 -Current Size (cm) - Depth 0.3 -Total Square Cm 1.05 -Tunneling No -Undermining/Tunneling Yes -Undermining/Tunneling Starts (O' 6 clock) -Undermining/Tunneling Ends (O'clock) 1 -Maximum Distance (cm) 0.3 -Circular Undermining No -Exudate Amt Medium -Exudate Type Serosanguineous -Wound Margin Thickened -Granulation Amt Medium (34-66%) -Granulation Quality Red -Slough/Fibrin Yes -Necrosis Amt Medium (34-66%) -Necrotic Tissue Type Adherent Slough -Structure Exposed N/A -Texture (Bere-wound Skin Appearance) Callus -Moisture (Bere-wound Skin Appearance Assessed ) -Color (Bere-wound Skin Appearance) Assessed -Temperature (Bere-wound Skin No Abnormality Appearance) (Pt Warm) -Tenderness on Palpation (Bere-wound No Skin Appearance) -Ulcer Cleansing Wound Cleanser -Foul Odor after Cleansing No -Anesthetic Used 5% Lidocaine Gel [Edema Assessment] -Lower Limb Edema Present Yes -Right Calf (cm) 42 -Right Ankle (cm) 25.5 WC - Nurse 2 - General Ulcer CM Notes Start: 09/23/18 09:51 Freq: Status: Active Protocol: Activity Type Activity Date Activity User E-Sign Co-Sign Detail Recorded Client Recorded Date Recorded By Document 10/21/18 11:14 MW [id number] 10/21/18 11:28 MW 10/21/18 11:14 Wound Center Nurse 2 [Procedure/Treatment] #1 R Grt Toe -Time 11:15 -Correct Patient Yes -Correct Side, Site, Position Yes -Correct Procedure Yes -Procedure Performed Yes -Type of Procedure Debridement -Clinical Debridement Subcutaneous -Post Debridement Size (cm) - Length 1.8 -Post Debridement Size (cm) - Width 1.4 -Post Debridement Size (cm) - Depth 0.3 -Total Square Cm 2.52 -Wound/Ulcer Outcome Not Healed -Ulcer Cleansing Rinsed/ Irrigated with Saline -Foul Odor after Cleansing No -Bioengineered Tissue Yes -Type of bioengineered Tissue EPIFIX -Expiration Date 02/21/23 -Product Lot Number [id number] -Percent Used 100 -Saline Lot Number [id number] -Bleeding Controlled with Pressure -Offloading No -Treatment Response Procedure Tolerated Well [See Physician Procedure note for Specifics] Pain Scale: 0-10 Numeric [Pain] -Is Patient Pain Free? Yes Musculoskeletal: No Tenderness to Palpation of Joints or Extremities Lymphatic: No Cervical, Supraclavicular, or Inguinal Adenopathy Neurological: Cranial nerves II-XII grossly intact, Neuro grossly intact Psych/Mental Status: Normal Affect, Appropriate, Alert and oriented to time, place, person, mood and affect Debridement Note Post-Debridement Measurements/Treatment WC - Nurse 2 - General Ulcer CM Notes Start: 09/23/18 09:51 Freq: Status: Active Protocol: Activity Type Activity Date Activity User E-Sign Co-Sign Detail Recorded Client Recorded Date Recorded By Document 09/23/18 10:05 MW [id number] 09/23/18 10:09 MW Document 10/07/18 12:03 MW [id number] 10/07/18 12:05 MW Document 10/14/18 11:36 MW [id number] 10/14/18 11:46 MW Document 10/21/18 11:14 MW [id number] 10/21/18 11:28 MW 09/23/18 10/07/18 10/14/18 10:05 12:03 11:36 Wound Center Nurse 2 #1 R Grt Toe -Time 10:06 12:03 11:38 -Correct Patient Yes Yes Yes -Correct Side, Site, Position Yes Yes Yes -Correct Procedure Yes Yes Yes -Procedure Performed Yes Yes Yes -Type of Procedure Debridement Debridement Debridement -Clinical Debridement Subcutaneous Subcutaneous Subcutaneous -Post Debridement Size (cm) - Length 1.4 1.5 1.8 -Post Debridement Size (cm) - Width 1.2 1.0 1.0 -Post Debridement Size (cm) - Depth 0.3 0.5 0.3 -Total Square Cm 1.68 1.50 1.80 -Wound/Ulcer Outcome Not Healed Not Healed Not Healed -Ulcer Cleansing Rinsed/ Rinsed/ Rinsed/ Irrigated with Irrigated with Irrigated with Saline Saline Saline -Foul Odor after Cleansing No No No -Bioengineered Tissue No Yes Yes -Type of bioengineered Tissue EPIFIX EPIFIX -Expiration Date 02/21/23 02/21/23 -Product Lot Number [id number] -Percent Used 100 100 -Saline Lot Number [id number] -Bleeding Controlled with Pressure Pressure Pressure -Other undermining 12- undermining 6- 1 , 0.3cm 12, 0.3 -Offloading No No No -Treatment Response Procedure Procedure Procedure Tolerated Well Tolerated Well Tolerated Well Pain Scale: 0-10 Numeric Is Patient Pain Free? Yes Yes Yes 10/21/18 11:14 Wound Center Nurse 2 #1 R Grt Toe -Time 11:15 -Correct Patient Yes -Correct Side, Site, Position Yes -Correct Procedure Yes -Procedure Performed Yes -Type of Procedure Debridement -Clinical Debridement Subcutaneous -Post Debridement Size (cm) - Length 1.8 -Post Debridement Size (cm) - Width 1.4 -Post Debridement Size (cm) - Depth 0.3 -Total Square Cm 2.52 -Wound/Ulcer Outcome Not Healed -Ulcer Cleansing Rinsed/ Irrigated with Saline -Foul Odor after Cleansing No -Bioengineered Tissue Yes -Type of bioengineered Tissue EPIFIX -Expiration Date 02/21/23 -Product Lot Number [id number] -Percent Used 100 -Saline Lot Number [id number] -Bleeding Controlled with Pressure -Other -Offloading No -Treatment Response Procedure Tolerated Well Pain Scale: 0-10 Numeric Is Patient Pain Free? Yes Wound debrided: Great toe DFU Laterality: Right Wound Grade/Stage: Stage III Type of Debridement: Excisional debridement Anesthesia Used: 5% Lidocaine Gel Depth: Down to and including healthy tissue, in the subcutaneous layer Percentage of wound debrided: 100 Instrument Used: 7mm curette, - - Nippers Tissue Removed: Callus and fibrin Severity: Limited To Skin Breakdown Amount of bleeding with debridement: Mild Bleeding Controlled with: Compression and gauze Patient tolerated procedure well Assessment/Plan Active Problems Diabetes type 2, uncontrolled (Acute) Decubitus ulcer of toe, stage 3 (Acute) Non-healing 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 Stage III decubitus ulcer right great toe. Nonhealing ulcer greater than 30 days Plan: Epi fix #3 applied Steri-Strips Aquacel dressing applied. Leave dressing alone and keep dry until November 04. Then start Promogran to wound base cover with gauze and tape. Follow-up in 2 week
== END 2018-10-21 23:59 ==
LOC: WC 11:00
PROVIDERS: Family Provider Family Medicine; PCP Family Medicine; Visit Provider Nurse Practitioner
DX: E11.621 Type 2 diabetes mellitus with foot ulcer (principal); L89.893 Pressure ulcer of other site, stage 3; E11.65 Type 2 diabetes mellitus with hyperglycemia; L84 Corns and callosities; Z86.14 Personal history of Methicillin resistant Staphylococcus aureus infection
CPT/HCPCS: 11042; 15275; Q4186

== ENCOUNTER 2021-09-09 07:37 | Outpatient (RCR) | payer OTHER, SELFPAY ==
[2021-09-09 08:03] VITALS: BP 127/83; PULSE 80; RESP 16; TEMP 36.2; BMI 31.1
--- NOTE | 2021-09-09 09:10 | PCM.WC.HP ---
History of Present Illness Date of Service: 09/09/21 Chief Complaint: Follow-up on right great toe ulcer History of Wound: 58-year-old male with a chronic right hallux ulceration present for 2 to 3 years. Patient notes that he has attempted multiple treatments to get this to heal which have failed. Patient denies any constitutional symptoms patient denies any pain to his wound site. Patient was recently admitted for pneumonia and saw sterile processing manager at that time. Patient had x-rays done but deferred any advanced imaging or any recommendations per the sterile processing manager. He was treated with oral antibiotics for a MRSA infection. Today he denies any constitutional symptoms notes stability of his wound has been dressing it daily and cleaning it himself. He denies any offloading to the wound. Patient notes recent A1c was 7. He has numbness to bilateral feet. Denies any leg cramping. Notes that he had recent vascular studies done and that he has intact blood flow. Patient has no other complaints at this time. [facility] Home Medications aspirin [Aspir 81] 81 mg PO DAILY 09/09/18 [History Last Taken Unknown] atorvastatin 40 mg PO BID 09/09/18 [History Last Taken Unknown] dulaglutide [Trulicity] 1.5 mg SQ SA 09/09/18 [History Last Taken Unknown] gabapentin [Neurontin] 600 mg PO TID 09/09/18 [History Last Taken Unknown] empagliflozin [Jardiance] 25 mg PO DAILY 09/09/21 [History Last Taken Unknown] losartan 50 mg PO DAILY 09/09/21 [History Last Taken Unknown] metformin 750 mg PO BID 09/09/21 [History Last Taken Unknown] metoprolol succinate 25 mg PO DAILY 09/09/21 [History Last Taken Unknown] sodium bicarbonate 1,300 mg PO BID 09/09/21 [History Last Taken Unknown] Allergy/AdvReac Type Severity Reaction Status Date / Time amoxicillin Allergy NEEDS Verified 09/09/21 08:17 FOLLOW-UP hydrocodone Allergy Other Verified 09/09/21 08:17 Penicillins [PCN] Allergy Rash Verified 09/09/18 09:15 codeine AdvReac Nausea Verified 09/09/18 09:15 Social History Smoking Status: Never smoker Vital Signs Vital Signs Vital Signs: 09/09/21 08:03 Temperature 97.2 F L Temperature Source Temporal Pulse Rate 80 Respiratory Rate 16 Blood Pressure 127/83 H Blood Pressure Mean 97 Blood Pressure Source Monitor Blood Pressure Position Sitting Blood Pressure Location Left Arm Oxygen Delivery Method Room Air Weight Weight: 104.326 kg Body Mass Index (BMI) 31.1 Physical Exam Narrative Patient alert oriented person place and time patient ambulating in dress shoes without assistance. Vascular: Dorsalis pedis posterior tibial pulse palpable 2 out of 4. Digital hair growth noted to digits. Capillary fill time brisk to toes. Mild edema limited to right hallux. Neurologic: Light touch protective sensation absent to bilateral feet reestablishment tibia Dermatologic: Full-thickness ulceration noted to the plantar right hallux at the level of the interphalangeal joint. This wound demonstrates significant depth but no undermining or probing to tendon or bone. No acute signs of infection. Pre and postdebridement measurements documented nursing notes. There is mild hyperkeratosis buildup around the periwound area with 100% granular base this was excised and noted to be clean postdebridement. Musculoskeletal: Hallux rigidus with virtually no hallux interphalangeal joint range of motion. Muscular strength full the bilateral lower extremity compartments. Debridement Note Debridement Note Post-Debridement Measurements and Additional Note: Post-Debridement Measurements/Treatment - Nurse 1 - General Ulcer Assessment Start: 09/09/21 08:03 Freq: Status: Active Protocol: MIA Activity Type Activity Date Activity User E-Sign Co-Sign Detail Recorded Client Recorded Date Recorded By Document 09/09/21 08:03 [facility] [id number] 09/09/21 08:12 [facility] 09/09/21 08:03 - Today's Visit Information Type of service Initial Visit Arrival Mode Ambulatory Transfer Assistance None Patient Identification Verified (Name & Yes ) Patient Requires Transmission-Based No Precautions Finger Stick Blood Sugar(mg/dl) (if 97 indicated): Blood Sugar Stated by Patient Height and Weight Height 6 ft Weight 104.326 kg Weight in Pounds 230.0 lbs Weight Measurement Method Stated by Patient Body Mass Index (BMI) 31.1 BMI Classification Obese BSA - José 2.26 Vital Signs Temperature (97.8 F-99.1 F) 97.2 F L Temperature Source Temporal Pulse Rate (60-100) 80 Pulse Location Monitor Respiratory Rate (12-18) 16 Respiratory rate source Observation Oxygen Delivery Method Room Air Blood Pressure (90/60-120/80) 127/83 H Blood Pressure Mean 97 Source Monitor Position Sitting Blood Pressure Location Left Arm History Since Last Visit- (Skip if this is Patient's initial visit) Left Footwear Regular Shoe Right Footwear Regular Shoe Pain Scale: 0-10 Numeric Is Patient Pain Free? 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 No Able to Read Yes Able to Write Yes Communication Tools None Right Hearing Abillity Normal Left Hearing Abillity Normal Visual Assistive Devices None Teaching Assessment Preferences Verbal,Written, Audio/Visual, Demonstration Barriers to Learning None Readiness To Learn Excellent Willingness to Engage in Self Management High Activies Readiness to Engage in Self Management High Activities Anxiety Level Calm Cooperation Cooperative Perception Coherent Interest in Health Problem Asks Questions Education Importance Acknowledges Need Does Patient Smoke tobacco or other No substances Smoking Status Never smoker Is Patient Diabetic Yes Functional Assessment Recent Decline in Ability to Perform Denies Any Declines Culture/Rastafarian/[employer] Cultural/Rastafarian Needs that may affect No Treatment Plan Teaching: Wound Center *Welcome to the Wound Center -Person Taught Patient -Teaching Method Discussion -Response to teaching Verbalize understanding Welcome to the Wound Care Center English YOUSSEF - Nurse 1 - General Ulcer Measurement Start: 09/09/21 08:03 Freq: Status: Active Protocol: Activity Type Activity Date Activity User E-Sign Co-Sign Detail Recorded Client Recorded Date Recorded By Document 09/09/21 08:03 [facility] [id number] 09/09/21 08:12 [facility] 09/09/21 08:03 Wound Center Nurse 1 #2- R GR TOE PLANTAR -Combined with other wound No -Current Size (cm) - Length 1.2 -Current Size (cm) - Width 0.5 -Current Size (cm) - Depth 0.6 -Total Square Cm 0.60 -Date of Last Picture (Recall this 09/09/21 field) -Photo Taken Yes -Epithelialization None Present -Tunneling No -Undermining/Tunneling Yes -Undermining/Tunneling Starts (O'clock 11 ) -Undermining/Tunneling Ends (O'clock) 6 -Maximum Distance (cm) 0.3 -Circular Undermining No -Exudate Amt Medium -Exudate Type Serosanguineous -Wound Margin Distinct, Outline Attached -Granulation Amt Large (67-100%) -Granulation Quality Red -Slough/Fibrin No -Necrosis Amt None Present (0 %) -Texture (Bere-wound Skin Appearance) Assessed,Callus ,Scarring -Moisture (Bere-wound Skin Appearance) Assessed -Color (Bere-wound Skin Appearance) Assessed -Temperature (Bere-wound Skin No Abnormality Appearance) (Pt Warm) -Tenderness on Palpation (Bere-wound No Skin Appearance) -Ulcer Cleansing Rinsed/ Irrigated with Saline -Foul Odor after Cleansing No -Anesthetic Used 5% Lidocaine Gel Right Calf (cm) 40 Right Ankle (cm) 23.5 Left Calf (cm) 39.8 Left Ankle (cm) 23 WC - Nurse 2 - General Ulcer CM Notes Start: 09/09/21 08:03 Freq: Status: Active Protocol: Activity Type Activity Date Activity User E-Sign Co-Sign Detail Recorded Client Recorded Date Recorded By Document 09/09/21 08:52 [facility]LLER[facility] [id number] 09/09/21 09:03 [facility]LLER[facility] 09/09/21 08:52 Wound Center Nurse 2 #2- R GR TOE PLANTAR -Time 08:53 -Correct Patient Yes -Correct Side, Site, Position Yes -Correct Procedure Yes -Procedure Performed Yes -Type of Procedure Debridement -Clinical Debridement Subcutaneous -Tissue Removed Subcutaneous -Post Debridement (cm) - Length 1.2 -Post Debridement (cm) - Width 0.6 -Post Debridement (cm) - Depth 0.5 -Total Square (Post) (cm) 0.72 -Area of Debridement (cm) - Length 1.2 -Area of Debridement (cm) - Width 0.6 -Total Square (Area) (cm) 0.72 -Tunneling No -Undermining/Tunneling No -Circular Undermining No -Wound/Ulcer Outcome Not Healed -Ulcer Cleansing Rinsed/ Irrigated with Saline -Foul Odor after Cleansing No -Bioengineered Tissue No -Bleeding Controlled with Pressure -Treatment Response Procedure Tolerated Well -Offloading Yes -Type of Offloading Surgical Shoe -Debridement - Subq, 1st 20sq cm Yes Pain Scale: 0-10 Numeric Is Patient Pain Free? Yes Assessment/Plan Assessment/Plan (1) Non-pressure chronic ulcer of other part of right foot with fat layer exposed: CODE(S): L97.512 - Non-pressure chronic ulcer of other part of right foot with fat layer exposed PLAN: Patient examined evaluated, all findings discussed with patient in detail. Previous lab studies, x-ray report reviewed. Demonstrates hypoalbuminemia suggestive of poor nutritional status. I recommend supplementation with either Glucerna or Aaron. Radiographs were negative for any underlying bone infection per report. We will request the vascular study results to evaluate his arterial study further. His right hallux wound was excisionally debrided after obtaining oral consent down to including level of subcutaneous tissue of all nonviable tissue using a #15 blade without incident. No anesthesia required due to neuropathy. Hemostasis obtained with silver nitrate. Pre and postdebridement measurement document nursing notes. Patient refused cleansing. Patient refused total contact casting. Patient refused surgical shoe with offloading pad. Patient refused cam walking boot. Patient refused hallux interphalangeal joint arthroplasty. Wound was dressed with Miriam and a Band-Aid. Patient refused as ordering him dressing supplies. I recommend the patient follow-up in 3 weeks to ensure that there is no development of acute or chronic infection. Patient refused and wishes to follow-up on October 22 due to insurance reasons. I will accommodate this, but the patient continues to defer any my recommendations we will consider discharge from clinic. Per his statement, he is going to try his own offloading pad in his shoe to offload his hallux ulcer, attempt to reduce any pressure on the site, use Aaron to improve nutritional status, order his own dressing supplies including Miriam and perform his own daily cleansing and dressing until follow-up. I recommend that he contact us if he notes any signs of infection. (2) Type 2 diabetes mellitus with diabetic polyneuropathy: CODE(S): E11.42 - Type 2 diabetes mellitus with diabetic polyneuropathy QUALIFIERS: Diabetes mellitus continuous churn buttermaker insulin use: unspecified usp insulin use status Qualified Code(s): E11.42 - Type 2 diabetes mellitus with diabetic polyneuropathy
== END 2021-09-20 23:59 | disposition home or self-care (01) ==
LOC: WC 07:37
PROVIDERS: PCP Family Medicine; Visit Provider Podiatrist
DX: E11.621 Type 2 diabetes mellitus with foot ulcer (principal); L97.512 Non-pressure chronic ulcer of other part of right foot with fat layer exposed; E11.42 Type 2 diabetes mellitus with diabetic polyneuropathy; Z86.14 Personal history of Methicillin resistant Staphylococcus aureus infection; Z79.82 Long term (current) use of aspirin; Z79.899 Other long term (current) drug therapy; Z79.84 Long term (current) use of oral hypoglycemic drugs
CPT/HCPCS: 11042; 99213; G0463